=== PATIENT | male | born 1985 | race Caucasian/White ===

== ENCOUNTER 2016-12-15 00:52 | Inpatient (IN) | payer OTHER ==
--- NOTE | 2016-12-15 01:13 | HP ---
COWS - Scale Resting Pulse: 1= [place] 81-100 Sweatin= Chills/Flushing Restless Observation: 3= Extraneous Movement Pupil Size: 2= Moderately Dilated Bone or Joint Aches: 2= Severe Diffuse Aches Runny Nose/ Eye Tearin= Runny Nose/Eyes GI Upset > 30mins: 3= Vomiting/Diarrhea Tremor Observation: 2= Slight Tremor Visible Yawning Observation: 2= >3x During Session Anxiety or Irritability: 2=Irritable/Anxious Goose Flesh Skin: 0=Smooth Skin COWS Score: 20 Admission ROS BHS - HPI Chief Complaint: i need help to stop using heroin,pcp,cocaine Allergies/Adverse Reactions: Allergies Allergy/AdvReac Type Severity Reaction Status Date / Time No Known Allergies Allergy Verified 12/15/16 01:51 History of Present Illness: this 31 years old male with heroi,cocaine and pcp dependence,seeking detox,last treatment [facility] 02/03/16 to 02/07/16 nicotine dependence depression weight loss no significant period of sobriety Exam Limitations: No Limitations - Ebola screening Have you traveled outside of the country in the last 21 days: No - Review of Systems Constitutional: Chills, Diaphoresis, Loss of Appetite, Malaise, Night Sweats, Changes in sleep, Weakness, Unintentional Wgt. Loss EENT: reports: Tearing, Nose Congestion Respiratory: reports: Other (asthma) Cardiac: reports: No Symptoms Reported GI: reports: Diarrhea, Nausea, Vomiting, Abdominal cramping Musculoskeletal: reports: Back Pain, Joint Pain, Muscle Pain, Joint Stiffness Neuro: reports: Headache, Tremors Endocrine: reports: No Symptoms Reported Hematology: reports: No Symptoms Reported Psychiatric: reports: Judgement Intact, Mood/Affect Appropiate, Orientated x3, Depressed Patient History - Patient Medical History Hx Anemia: No Hx Asthma: Yes (on albutrol inhaler) Hx Chronic Obstructive Pulmonary Disease (COPD): No Hx Cancer: No Hx Cardiac Disorders: No Hx Congestive Heart Failure: No Hx Hypertension: No Hx Hypercholesterolemia: No Hx Pacemaker: No HX Cerebrovascular Accident: No Hx Seizures: No Hx Dementia: No Hx Diabetes: No Hx Gastrointestinal Disorders: No Hx Liver Disease: No Hx Genitourinary Disorders: No Hx Sexually Transmitted Disorders: No Hx Renal Disease (ESRD): No Hx Thyroid Disease: No Hx Human Immunodeficiency Virus (HIV): No (negative last 2015 ) Hx Hepatitis C: No (negative) Hx Depression: Yes Hx Suicide Attempt: No Hx Bipolar Disorder: Yes (remeron ) Hx Schizophrenia: No Other Medical History: no suicidal,no homicida,migaine - Patient Surgical History Past Surgical History: Yes Hx Neurologic Surgery: No Hx Cataract Extraction: No Hx Cardiac Surgery: No Hx Lung Surgery: No Hx Breast Surgery: No Hx Breast Biopsy: No Hx Abdominal Surgery: No Hx Appendectomy: No Hx Cholecystectomy: No Hx Genitourinary Surgery: No Hx Section: No Hx Orthopedic Surgery: Yes (right small finger at age of [age] years old) Anesthesia Reaction: No - PPD History Documented Results: Negative w/o proof Date: 06/30/15 Results: 0 mm PPD to be Administered?: Yes - Smoking Cessation Smoking history: Current every day smoker Have you smoked in the past 12 months: Yes Aproximately how many cigarettes per day: 10 Cigars Per Day: 0 Hx Chewing Tobacco Use: No Initiated information on smoking cessation: Yes 'Breaking Loose' booklet given: 12/15/16 - Substance & Tx. History Hx Alcohol Use: No Hx Substance Use: Yes Substance Use Type: Cocaine, Heroin Hx Substance Use Treatment: Yes ([facility] 02/03/16 to 02/07/16) - Substances Abused Heroin Route: Inhalation Frequency: Daily Amount used: 3 bags Age of first use: 29 Date of Last Use: 12/14/16 Cocaine Route: Inhalation Frequency: 1-2 times per week Amount used: 40 to 60$ Age of first use: 29 Date of Last Use: 12/14/16 PCP Route: Smoking Frequency: 3-6 times per week Amount used: 20$ Age of first use: 26 Date of Last Use: 12/14/16 Family Disease History - Family Disease History Family Disease History: Respiratory: Grandparent (GRAND MOTHER ETOH/ASTHMA), Other: Father (alcohol dependence ) Admission Physical Exam S - Vital Signs Vital Signs: Vital Signs Temperature 98 F 12/15/16 01:28 Pulse Rate 83 12/15/16 01:28 Respiratory Rate 20 12/15/16 01:28 Blood Pressure 133/83 12/15/16 01:28 O2 Sat by Pulse Oximetry (%) - Physical General Appearance: Yes: Moderate Distress, Irritable, Sweating, Anxious HEENTM: Yes: Normal ENT Inspection, [place], Pharynx Normal Respiratory: Yes: Lungs Clear, Normal Breath Sounds, No Respiratory Distress Neck: Yes: Within Normal Limits Breast: Yes: Within Normal Limits Cardiology: Yes: Within Normal Limits, Regular Rhythm, Regular Rate, S1, S2 Abdominal: Yes: Within Normal Limits, Normal Bowel Sounds, Non Tender, Soft Genitourinary: Yes: Within Normal Limits Back: Yes: Within Normal Limits, Muscle Spasm Musculoskeletal: Yes: Within Normal Limits, full range of Motion, Back pain, Muscle Pain Extremities: Yes: Within Normal Limits, Normal Range of Motion, Tremors Neurological: Yes: carbon dioxide operator II-XII NML intact, Fully Oriented, Alert, Motor Strength 5/5 Integumentary: Yes: Dry Lymphatic: Yes: Within Normal Limits - Diagnostic (1) Cocaine dependence, uncomplicated Current Visit: Yes Status: Acute (2) Opioid dependence with withdrawal Current Visit: Yes Status: Acute (3) PCP dependence Current Visit: Yes Status: Acute (4) Substance induced mood disorder Current Visit: Yes Status: Acute (5) Asthma Current Visit: Yes Status: Chronic Qualifiers: Asthma severity: mild intermittent Asthma complication type: uncomplicated Qualified Code(s): J45.20 - Mild intermittent asthma, uncomplicated (6) Low back pain Current Visit: Yes Status: Chronic Qualifiers: Chronicity: chronic Back pain laterality: unspecified Sciatica presence: without sciatica Qualified Code(s): M54.5 - Low back pain (7) Nicotine dependence Current Visit: Yes Status: Acute Qualifiers: Nicotine product type: cigarettes Substance use status: uncomplicated Qualified Code(s): F17.210 - Nicotine dependence, cigarettes, uncomplicated (8) Weight loss Current Visit: No Status: Chronic (9) ADHD (attention deficit hyperactivity disorder) Current Visit: Yes Status: Chronic Comment: Historical diagnosis. (10) Bipolar disorder Current Visit: No Status: Suspected Qualifiers: Active/Remission status: in partial remission Most recent bipolar episode type: mixed Qualified Code(s): F31.77 - Bipolar disorder, in partial remission, most recent episode mixed Comment: Historical diagnosis. Cleared for Admission BHS - Detox or Rehab S Level of Care: Medically Managed Detox Regimen/Protocol: Methadone S Breath Alcohol Content Breath Alcohol Content: 0 Vital Signs - Vital Signs Vital Signs Refused: No Temperature: 98 F Temperature Source: Oral Pulse Rate: 83 Respiratory Rate: 20 Blood Pressure: 133/83 BP Location: Left Arm Blood Pressure Position: Supine - Height Height: 5 ft 5 in - Weight Weight: 172 lb Weight Measurement Method: Standing Scale Body Mass Index (BMI): 28.6 Urine Drug Screen - Test Device Lot Number: [id number] Expiration Date: 09/19/18 - Control Is Test Valid: Yes - Results Drug Screen Negative: No Urine Drug Screen Results: TERESA-Cocaine, OPI-Opiates, PCP-Phencyclidine
[2016-12-15 01:29] VITALS: BMI 28.6
[2016-12-15] MEDS ORDERED: guaiFENesin/D-METHORPHAN HB 10 ML UNIT-DOSE CUPS PO PRN (01:33)
[2016-12-15] MEDS ORDERED: NICOTINE POLACRILEX 2 MG GUM BC PRN (01:33)
[2016-12-15] MEDS ORDERED: METHADONE HCL 10 MG TABLET (FOR DETOX USE ONLY) PO ONE ×3 (01:33→23:00)
[2016-12-15] MEDS ORDERED: hydrOXYzine PAMOATE 50 MG CAPSULE (FP) PO PRN (01:33)
[2016-12-15] MEDS ORDERED: MAGNESIUM HYDROX 2400MG/30ML ORAL SUSPENSION 30 ML CUP PO PRN (01:33)
[2016-12-15] MEDS ORDERED: P-EPHED 60MG/TRIPROLIDI 2.5MG TABLET PO PRN (01:33)
[2016-12-15] MEDS ORDERED: MAG HYDROX/AL HYDROX/SIMETH 30 ML UNIT-DOSE CUP PO PRN (01:33)
[2016-12-15] MEDS ORDERED: ACETAMINOPHEN 325 MG TABLET (FP) PO PRN (01:33)
[2016-12-15] MEDS ORDERED: MENTHOL/PHENOL 1 EACH UD MM PRN (01:33)
[2016-12-15] MEDS ORDERED: LOPERAMIDE HCL 2 MG CAPSULE PO PRN (01:33)
[2016-12-15] MEDS ORDERED: MAGNESIUM CITRATE 300 ML BOTTLE PO PRN (01:33)
[2016-12-15] MEDS: diphenhydrAMINE HCL 50 MG CAPSULE PO PRN (02:01)
[2016-12-15] MEDS: diazePAM 5 MG TABLET PO PRN ×3 (02:01→10:27)
[2016-12-15] MEDS: PRENATAL VITAMINS W/ FOLIC ACID TABLET (FP) PO SCH (10:27)
[2016-12-15 10:44] LABS: MCH 29.7 pg (25.7-33.7); MEAN CELL VOLUME 87.5 fl (80-96); MEAN PLT VOLUME 10.4 fl (7.5-11.1); PLATELET COUNT 163 K/MM3 (134-434); RDW 13.1 % (11.9-15.9); WHITE BLOOD COUNT 8.7 K/mm3 (4.0-10.0)
[2016-12-15 10:58] LABS: ALBUMIN 3.9 g/dl (3.4-5.0); ALK PHOS 75 U/L (45-117); ANION GAP 6 (8-16); BILIRUBIN,TOTAL 0.5 mg/dL (0.2-1.0); CO2 31 mmol/L (21-32); CREATININE 1.1 mg/dL (0.7-1.3); GLUCOSE,RANDOM 87 mg/dL (74-106); SGOT/AST 8 U/L (15-37); SGPT/ALT 20 U/L (12-78)
[2016-12-15 11:02] LABS: HIV 1 & 2 AB NEGATIVE; HIV 1 AGp24 NEGATIVE
[2016-12-15] MEDS ORDERED: PNEUMOC 13-VAL CONJ-DIP CRM/PF 0.5 ML DISP.SYRIN IM ONE (12:00)
[2016-12-15] MEDS: NICOTINE 21 MG/24 HOURS TOPICAL PATCH TD SCH (12:49)
[2016-12-15] MEDS ORDERED: PNEUMOCOCCAL 23 VACCINE 0.5 ML VIAL IM ONE (12:58)
[2016-12-15] MEDS: IBUPROFEN 400 MG TABLET (FP) PO PRN (14:25)
--- NOTE | 2016-12-15 15:08 | PN ---
BHS COWS - Scale Resting Pulse: 0= [place] 80 or Below Sweatin=Flushed/Facial Moisture Restless Observation: 1= Difficult to Sit Still Pupil Size: 0= Normal to Room Light Bone or Joint Aches: 2= Severe Diffuse Aches Runny Nose/ Eye Tearin= Runny Nose/Eyes GI Upset > 30mins: 1= Stomach Cramp Tremor Observation of Outstretched Hands: 1= Tremor [place], Not Seen Yawning Observation: 2= >3x During Session Anxiety or Irritability: 2=Irritable/Anxious Goose Flesh Skin: 0=Smooth Skin COWS Score: 13 BHS Progress Note (SOAP) Subjective: Interrupted sleep, Body Aches, H/A, Sweating. Objective: PT. A & O X 2 (DISORIENTED ABOUT DAY / DATE). NO ACUTE DISTRESS. 12/15/16 15:07 Vital Signs Temperature 97.1 F L 12/15/16 09:33 Pulse Rate 63 12/15/16 09:33 Respiratory Rate 18 12/15/16 09:33 Blood Pressure 111/66 12/15/16 09:33 O2 Sat by Pulse Oximetry (%) Laboratory Tests 12/15/16 12/15/16 12/15/16 07:50 07:50 07:50 WBC 8.7 D RBC 5.17 Hgb 15.4 Hct 45.2 MCV 87.5 MCH 29.7 MCHC 34.0 RDW 13.1 Plt Count 163 MPV 10.4 Sodium 144 Potassium 3.7 Chloride 107 Carbon Dioxide 31 Anion Gap 6 L BUN 13 Creatinine 1.1 Creat Clearance w eGFR > 60 Random Glucose 87 Calcium 9.0 Total Bilirubin 0.5 D AST 8 L D ALT 20 Alkaline Phosphatase 75 Total Protein 7.0 Albumin 3.9 RPR Titer Nonreactive HIV 1&2 Antibody Screen HIV P24 Antigen 12/15/16 07:50 WBC RBC Hgb Hct MCV MCH MCHC RDW Plt Count MPV Sodium Potassium Chloride Carbon Dioxide Anion Gap BUN Creatinine Creat Clearance w eGFR Random Glucose Calcium Total Bilirubin AST ALT Alkaline Phosphatase Total Protein Albumin RPR Titer HIV 1&2 Antibody Screen Negative HIV P24 Antigen Negative LABS NOTED. Assessment: 12/15/16 15:07 WITHDRAWAL SYMPTOMS. Plan: CONTINUE DETOX.
--- NOTE | 2016-12-15 15:12 | CONSULT ---
[facility] Psychiatric Consult - Data Date of interview: 12/15/16 Admission source: [facility] Identifying data: One of multiple admissions to [facility] for this 31 y/o male seeking detox treatment on for heroin,cocaine and phencyclidine dependence.Patient is single,a father of two,undomiciled, unemployed and supported on SSI/SSD benefits. Substance Abuse History: Confirmed by patient in this interview. Smoking Cessation. Smoking history: Current every day smoker. Have you smoked in the past 12 months: Yes. Aproximately how many cigarettes per day: 10. Cigars Per Day: 0. Hx Chewing Tobacco Use: No. Initiated information on smoking cessation : Yes. 'Breaking Loose' booklet given: 12/15/16. - Substance & Tx. History. Hx Alcohol Use: No. Hx Substance Use: Yes. Substance Use Type: Cocaine, Heroin. Hx Substance Use Treatment: Yes ([facility] 02/03/16 to 02/07/16). - Substances Abused. Heroin. Route: Inhalation. Frequency: Daily. Amount used: 3 bags. Age of first use: 29. Date of Last Use: 12/14/16. Cocaine. Route: Inhalation. Frequency: 1-2 times per week. Amount used: 40 to 60$. Age of first use: 29. Date of Last Use: 12/14/16. PCP. Route: Smoking. Frequency: 3-6 times per week. Amount used: 20$. Age of first use: 26. Date of Last Use: 12/14/16 Medical History: Bronchial asthma. Psychiatric History: Patient is limited historian.Mr Blackman endorses : ADHD, Schizoprenia,Bipolar Disorder and MDD.History of two psychiatric hospitalizations at [facility].Patient admits to a history of non-adherence to OPD care.He states that he is currently prescribed remeron, seroquel,trazodone (doses not recalled).Reported history of suicide attempt via deliberate self-exposure to oncoming traffic in 2014. Physical/Sexual Abuse/Trauma History: Patient denies. Additional Comment: Urine Drug Screen Results: TERESA-Cocaine, OPI-Opiates, PCP- Phencyclidine.Noted. Mental Status Exam - Mental Status Exam Alert and Oriented to: Time, Place, Person Cognitive Function: Good Patient Appearance: Well Groomed Mood: Hopeful, Euthymic Affect: Appropriate, Normal Range Patient Behavior: Fatigued, Appropriate, Cooperative Speech Pattern: Clear Voice Loudness: Normal Thought Process: Goal Oriented Thought Disorder: Not Present Hallucinations: Denies Suicidal Ideation: Denies Homicidal Ideation: Denies Insight/Judgement: Poor Sleep: Poorly, Difficulty falling asleep Appetite: Good Muscle strength/Tone: Normal Gait/Station: Normal Psychiatric Findings - Problem List ([place] 1, 2,3) (1) Cocaine dependence, uncomplicated Current Visit: Yes Status: Acute (2) Opioid dependence with withdrawal Current Visit: Yes Status: Acute (3) PCP dependence Current Visit: Yes Status: Acute (4) Nicotine dependence Current Visit: Yes Status: Acute Qualifiers: Nicotine product type: cigarettes Substance use status: uncomplicated Qualified Code(s): F17.210 - Nicotine dependence, cigarettes, uncomplicated (5) Substance induced mood disorder Current Visit: Yes Status: Acute (6) ADHD (attention deficit hyperactivity disorder) Current Visit: Yes Status: Chronic Comment: Historical diagnosis. (7) Asthma Current Visit: Yes Status: Chronic Qualifiers: Asthma severity: mild intermittent Asthma complication type: uncomplicated Qualified Code(s): J45.20 - Mild intermittent asthma, uncomplicated (8) Low back pain Current Visit: Yes Status: Chronic Qualifiers: Chronicity: chronic Back pain laterality: unspecified Sciatica presence: without sciatica Qualified Code(s): M54.5 - Low back pain (9) Insomnia Current Visit: Yes Status: Acute - Initial Treatment Plan Initial Treatment Plan: Psychoeducation.Detoxification.Medications :
[2016-12-15] MEDS: QUEtiapine FUMARATE 100 MG TABLET (FP) PO SCH (22:45)
[2016-12-15] MEDS: MIRTAZAPINE 15 MG TABLET (FP) PO SCH (22:45)
[2016-12-15] MEDS: THIAMINE HCL 100 MG TABLET (FP) PO SCH (22:45)
[2016-12-16] MEDS: diazePAM 5 MG TABLET PO PRN ×3 (06:07→18:02)
[2016-12-16] MEDS ORDERED: METHADONE HCL 10 MG TABLET (FOR DETOX USE ONLY) PO ONE (10:00)
[2016-12-16] MEDS: PRENATAL VITAMINS W/ FOLIC ACID TABLET (FP) PO SCH (10:32)
[2016-12-16] MEDS: NICOTINE 21 MG/24 HOURS TOPICAL PATCH TD SCH (10:32)
[2016-12-16] MEDS: predniSONE 20 MG TABLET (UD) PO SCH (11:58)
[2016-12-16] MEDS: ALBUTEROL SO4 0.083% IH SOL 2.5 MG/3 ML VIAL.NEB. NEB PRN ×2 (12:01→21:23)
[2016-12-16] MEDS: IBUPROFEN 400 MG TABLET (FP) PO PRN ×2 (13:45→20:16)
--- NOTE | 2016-12-16 18:06 | PN ---
BHS COWS - Scale Resting Pulse: 0= [place] 80 or Below Sweatin= Chills/Flushing Restless Observation: 3= Extraneous Movement Pupil Size: 1= Pupils >than Normal Bone or Joint Aches: 2= Severe Diffuse Aches Runny Nose/ Eye Tearin= Runny Nose/Eyes GI Upset > 30mins: 3= Vomiting/Diarrhea Tremor Observation of Outstretched Hands: 2= Slight Tremor Visible Yawning Observation: 1= 1-2x During Session Anxiety or Irritability: 2=Irritable/Anxious Goose Flesh Skin: 0=Smooth Skin COWS Score: 17 BHS Progress Note (SOAP) Subjective: Tremor, chills, sweating, diarrhea, interrupted sleep; c/o tonsils feeling swollen since this morning and hard to breathe and that he has asthma Objective: 12/16/16 18:02 Last Vital Signs Temp Pulse Resp BP Pulse Ox 96.7 F L 64 18 114/73 12/16/16 14:18 12/16/16 14:18 12/16/16 14:18 12/16/16 14:18 PE: HEENT: AT/NC, PERRL, EOMI, nares patent, no pharyngeal erythema, tonsils moderately enlarged Neck: supple, FROM, no lymphadenopathy Resp: lungs ctab/l, no adventitious breath sounds CV: rrr, s1s2+ Skin: warm to touch, turgor good Neuro: A/A/Ox3, CN 11-X11 intact, gait steady, patient appears drowsy Laboratory Tests 12/15/16 12/15/16 12/15/16 07:50 07:50 07:50 WBC 8.7 D RBC 5.17 Hgb 15.4 Hct 45.2 MCV 87.5 MCH 29.7 MCHC 34.0 RDW 13.1 Plt Count 163 MPV 10.4 Sodium 144 Potassium 3.7 Chloride 107 Carbon Dioxide 31 Anion Gap 6 L BUN 13 Creatinine 1.1 Creat Clearance w eGFR > 60 Random Glucose 87 Calcium 9.0 Total Bilirubin 0.5 D AST 8 L D ALT 20 Alkaline Phosphatase 75 Total Protein 7.0 Albumin 3.9 RPR Titer Nonreactive HIV 1&2 Antibody Screen HIV P24 Antigen 12/15/16 07:50 WBC RBC Hgb Hct MCV MCH MCHC RDW Plt Count MPV Sodium Potassium Chloride Carbon Dioxide Anion Gap BUN Creatinine Creat Clearance w eGFR Random Glucose Calcium Total Bilirubin AST ALT Alkaline Phosphatase Total Protein Albumin RPR Titer HIV 1&2 Antibody Screen Negative HIV P24 Antigen Negative Labs noted Assessment: 12/16/16 18:06 Withdrawal symptoms Noted with enlarged tonsils and c/o hard to breathe, reports h/o asthma Plan: Continue detox Enlarged tonsils/asthma: prednisone 40mg PO x 1 dose then daily for 5 days, albuterol nebulizer 3ml x 1 dose then q6hr prn, albuterol mdi q4hr prn, continue to monitor
[2016-12-16] MEDS ORDERED: ALBUTEROL SO4 6.7 GM HFA INHALER IH PRN (18:10)
--- NOTE | 2016-12-16 22:25 | EKG ---
Test Reason : Blood Pressure : / mmHG Vent. Rate : 063 BPM Atrial Rate : 063 BPM P-R Int : 160 ms QRS Dur : 098 ms QT Int : 368 ms P-R-T Axes : 045 044 027 degrees QTc Int : 376 ms NORMAL SINUS RHYTHM INCOMPLETE RIGHT BUNDLE BRANCH BLOCK BORDERLINE ECG WHEN COMPARED WITH ECG OF 23-JUN-2009 21:01, NO SIGNIFICANT CHANGE WAS FOUND Confirmed by ALEKSANDER OLSON MD ([id number]) on 12/16/2016 10:24:59 PM Referred By: Confirmed By:ALEKSANDER OLSON MD
[2016-12-16] MEDS: THIAMINE HCL 100 MG TABLET (FP) PO SCH (22:40)
[2016-12-16] MEDS: QUEtiapine FUMARATE 100 MG TABLET (FP) PO SCH (22:40)
[2016-12-16] MEDS: MIRTAZAPINE 15 MG TABLET (FP) PO SCH (22:40)
[2016-12-17] MEDS: diphenhydrAMINE HCL 50 MG CAPSULE PO PRN (00:41)
[2016-12-17] MEDS: ALBUTEROL SO4 0.083% IH SOL 2.5 MG/3 ML VIAL.NEB. NEB PRN (03:19)
[2016-12-17] MEDS: diazePAM 5 MG TABLET PO PRN (05:37)
--- NOTE | 2016-12-17 09:55 | PN ---
BHS Progress Note (SOAP) Subjective: nausa, sweats, interrupted sleep, anxiety, tremors Objective: 12/17/16 09:54 Vital Signs - 8 hr 12/17/16 12/17/16 06:15 09:16 Temperature 97.1 F L 98.1 F Pulse Rate 62 80 Respiratory 18 18 Rate Blood Pressure 131/78 130/82 Laboratory Tests 12/15/16 12/15/16 12/15/16 07:50 07:50 07:50 WBC 8.7 D RBC 5.17 Hgb 15.4 Hct 45.2 MCV 87.5 MCH 29.7 MCHC 34.0 RDW 13.1 Plt Count 163 MPV 10.4 Sodium 144 Potassium 3.7 Chloride 107 Carbon Dioxide 31 Anion Gap 6 L BUN 13 Creatinine 1.1 Creat Clearance w eGFR > 60 Random Glucose 87 Calcium 9.0 Total Bilirubin 0.5 D AST 8 L D ALT 20 Alkaline Phosphatase 75 Total Protein 7.0 Albumin 3.9 RPR Titer Nonreactive HIV 1&2 Antibody Screen HIV P24 Antigen 12/15/16 07:50 WBC RBC Hgb Hct MCV MCH MCHC RDW Plt Count MPV Sodium Potassium Chloride Carbon Dioxide Anion Gap BUN Creatinine Creat Clearance w eGFR Random Glucose Calcium Total Bilirubin AST ALT Alkaline Phosphatase Total Protein Albumin RPR Titer HIV 1&2 Antibody Screen Negative HIV P24 Antigen Negative labs noted, u/a not performed Assessment: 12/17/16 09:55 withdrawal sx, absent u/a from admitting labs Plan: cont detox, u/a today
[2016-12-17] MEDS ORDERED: METHADONE HCL 5 MG TABLET (FOR DETOX USE ONLY) PO ONE (10:00)
[2016-12-17] MEDS: predniSONE 20 MG TABLET (UD) PO SCH (10:41)
[2016-12-17] MEDS: PRENATAL VITAMINS W/ FOLIC ACID TABLET (FP) PO SCH (10:42)
[2016-12-17] MEDS: NICOTINE 21 MG/24 HOURS TOPICAL PATCH TD SCH (10:43)
[2016-12-17 15:39] LABS: URINE APPEARANCE SLCLOUDY; URINE BILIRUBIN NEGATIVE (NEGATIVE); URINE BLOOD NEGATIVE (NEGATIVE); URINE COLOR YELLOW; URINE GLUCOSE (UA) NEGATIVE (NEGATIVE); URINE KETONE NEGATIVE (NEGATIVE); URINE LEUK ESTERASE NEGATIVE (NEGATIVE); URINE NITRITE NEGATIVE (NEGATIVE); URINE PROTEIN NEGATIVE (NEGATIVE); URINE UROBILINOGEN NEGATIVE mg/dL (0.2-1.0)
--- NOTE | 2016-12-17 17:04 | PN ---
[facility] Progress Note Note: CALLED TO SEE PT WHO WAS C/O ACTIVE BLOODY VOMITING AND UNSTEADY GAIT- DIZZINESS. PT HAS A HX HEROIN,COCAINE AND PCP USE. PT IS HERE DETOXING FROM HEROIN SINCE 12/15/16. PT REPORTS PREVIOUS HX OF VOMITING BLOOD SOMETIME LAST YEAR. DENIES STOMACH HX AILMENTS. DENIES DIARRHEA OR ABDOMINAL PAIN NOW. ALERT O X 3. DENIES ABDOMINAL PAIN EXCEPT HEARTBURN IN AM. PT WITH PMHx OF ASTHMA AND DEPRESSION. VS: BP 121/71 T97.4 P89 RR18 CARDIAC: S1 S2, RRR LUNGS:CTA/P ABDOMEN:SOFT BS+ ,SLIGHT DISTENSION, NT CLUMPS OF BLOODY EMESIS NOTED IN TOILET PLAN; TRANSFER TO [facility] ER VIA AMBULANCE FOR EVALUATION AND TREATMENT.
[2016-12-17] MEDS: MIRTAZAPINE 15 MG TABLET (FP) PO SCH (22:50)
[2016-12-17] MEDS: THIAMINE HCL 100 MG TABLET (FP) PO SCH (22:51)
[2016-12-17] MEDS: QUEtiapine FUMARATE 100 MG TABLET (FP) PO SCH (22:51)
[2016-12-18 00:17] VITALS: BP 129/66; PULSE 72; TEMP 98
--- NOTE | 2016-12-18 00:33 | PN ---
[facility] Progress Note Note: WATER SOFTENER INSTALLER CALLED TO THE FLOOR TO SPEAK WITH WITH THE PATIENT, WHO WANTS TO LEAVE AMA. HE HAD JUST RETURNED FROM [facility] ER AFTER BEING EVALUATED FOR VOMITING. HE STATES HE WILL F/U WITH PCP REGARDING ABNORMAL LABS. HE WAS ENCOURAGED TO STAY UNTIL THE MORNING BUT HE STATED HE LIVES WALKING DISTANCE FROM THE HOSPITAL.
[2016-12-18] MEDS ORDERED: METHADONE HCL 5 MG TABLET (FOR DETOX USE ONLY) PO ONE (10:00)
[2016-12-19] MEDS ORDERED: METHADONE HCL 10 MG TABLET (FOR DETOX USE ONLY) PO ONE (10:00)
[2016-12-20] MEDS ORDERED: METHADONE HCL 5 MG TABLET (FOR DETOX USE ONLY) PO ONE (06:00)
== END 2016-12-18 00:40 | disposition left against medical advice (07) | DRG 894 ==
LOC: YASAS 00:52 → Y3N 01:28
PROVIDERS: ADMIT Internal Medicine Addiction Medicine; ATTEND Internal Medicine
PROC: HZ2ZZZZ Detoxification Services for Substance Abuse Treatment (ICD-10-PCS; principal; 2016-12-18)
DX: F11.23 Opioid dependence with withdrawal (principal); F14.20 Cocaine dependence, uncomplicated; F16.20 Hallucinogen dependence, uncomplicated; F17.210 Nicotine dependence, cigarettes, uncomplicated; F31.9 Bipolar disorder, unspecified; F19.24 Other psychoactive substance dependence with psychoactive substance-induced mood disorder; G47.00 Insomnia, unspecified; F90.9 Attention-deficit hyperactivity disorder, unspecified type; J45.20 Mild intermittent asthma, uncomplicated; M54.5 Low back pain; G89.29 Other chronic pain
CPT/HCPCS: 36415; 80053; 81003; 85027; 86593; 87389; 93005; 93010; 94640

== ENCOUNTER 2016-12-17 17:10 | Emergency (ER) | payer OTHER ==
[2016-12-17 17:23] VITALS: PULSE 69; TEMP 97.7; BMI 29.4
[2016-12-17] MEDS ORDERED: ONDANSETRON 4 MG/2 ML VIAL IVPB ONE (17:40)
[2016-12-17] MEDS ORDERED: SODIUM CHLORIDE 1,000 ML IV STA (17:40)
[2016-12-17] MEDS ORDERED: PANTOPRAZOLE SODIUM 40 MG in SODIUM CHLORIDE 100 ML IVPB ONE (17:40)
[2016-12-17] MEDS ORDERED: ONDANSETRON 4 MG/2 ML VIAL ONE (18:06)
[2016-12-17] MEDS ORDERED: PANTOPRAZOLE SODIUM 100 ML IVPB ONE (18:06)
[2016-12-17 19:17] LABS: BASOPHIL 0.6 % (0-2.0); EOSINOPHIL 0.1 % (0-4.5); MCH 30.1 pg (25.7-33.7); MCHC 34.5 g/dl (32.0-35.9); MEAN CELL VOLUME 87.3 fl (80-96); MEAN PLT VOLUME 10.3 fl (7.5-11.1); NEUTROPHILS 81.5 % (42.8-82.8); PLATELET COUNT 144 K/MM3 (134-434); RDW 13.3 % (11.9-15.9)
[2016-12-17 19:28] LABS: INR 0.88 (0.82-1.09); PROTHROMBIN TIME (PATIENT) 9.7 SEC (9.98-11.88)
[2016-12-17 20:13] LABS: ALBUMIN 4.3 g/dl (3.4-5.0); ALK PHOS 92 U/L (45-117); ANION GAP 7 (8-16); BILIRUBIN,TOTAL 0.3 mg/dL (0.2-1.0); CALCIUM 9.7 mg/dL (8.5-10.1); CO2 30 mmol/L (21-32); GLUCOSE,RANDOM 114 mg/dL (74-106); SGOT/AST 180 U/L (15-37); SGPT/ALT 299 U/L (12-78); TOT PROT 7.7 g/dl (6.4-8.2)
--- NOTE | 2016-12-17 20:48 | PDOC ---
History of Present Illness - General History Source: Patient - History of Present Illness Initial Comments: 12/17/16 20:50 31 y/o M with a PMHx of schizophrenia, bipolar disorder, asthma, polysubstance abuse presents to the ED sent from [facility] with epigastric pain and vomiting today. Patients nurse at [facility] reports that she saw dark colored vomit, so they sent him here for further evaluation. Patient has been admitted to [facility] for 2 days fo PCP, heroin, and cocaine use. SHx: half a pack of tobacco daily, no buttermaker sobriety Allergies: none <Lucia Morgan - Last Filed: 12/17/16 20:50> <Sonia Alvarez - Last Filed: 12/18/16 17:53> - General Chief Complaint: Coffee Ground Emesis Stated Complaint: VOMITING BLOOD Time Seen by Provider: 12/17/16 17:16 Past History <Lucia Morgan - Last Filed: 12/17/16 20:50> - Past Medical History Anemia: No Asthma: Yes (on albutrol inhaler) Cancer: No Cardiac Disorders: No CVA: No COPD: No CHF: No Dementia: No Diabetes: No GI Disorders: No Disorders: No HTN: No Hypercholesterolemia: No Kidney Stones: No Liver Disease: No Psychiatric Problems: Yes (depression/anxiety/ bipolar) Suicide Attempt (Hx): No Seizures: No Thyroid Disease: No - Surgical History Abdominal Surgery: No Appendectomy: No Cardiac Surgery: No Cholecystectomy: No Lung Surgery: No Neurologic Surgery: No Orthopedic Surgery: Yes (right small finger at age of [age] years old) - Reproductive History Testicular Surgery: No - Immunization History Immunization Up to Date: Yes - Psycho/Social/Smoking Cessation Hx Anxiety: No Suicidal Ideation: No Smoking Status: Yes Smoking History: Current every day smoker Have you smoked in the past 12 months: Yes Number of Cigarettes Smoked Daily: 10 Cigars Per Day: 0 Information on smoking cessation initiated: No 'Breaking Loose' booklet given: 12/15/16 Hx Alcohol Use: No Drug/Substance Use Hx: No Substance Use Type: Cocaine, Heroin Hx Substance Use Treatment: Yes (sj 02/03/16 to 02/07/16) <Sonia Alvarez - Last Filed: 12/18/16 17:53> - Past Medical History Allergies/Adverse Reactions: Allergies Allergy/AdvReac Type Severity Reaction Status Date / Time No Known Allergies Allergy Verified 12/17/16 17:21 Home Medications: Ambulatory Orders Albuterol Sulfate Inhaler - [Ventolin Hfa Inhaler -] 2 inh PO Q4H PRN 02/03/16 Mirtazapine [Remeron -] 45 mg PO HS 12/15/16 Quetiapine Fumarate [Seroquel] 100 mg PO HS #30 tablet 12/15/16 Abd/GI Specific PMHX - Complaint Specific PMHX Hepatitis: No Pancreatitis: No <AntonioSonia Martha - Last Filed: 12/18/16 17:53> Review of Systems - Review of Systems Comments:: 12/17/16 20:50 CONSTITUTIONAL: Absent: fever, chills, fatigue EYES: Absent: visual changes ENT: Absent: ear pain, sore throat CARDIOVASCULAR: Absent: chest pain, palpitations RESPIRATORY: Absent: cough, SOB GI: (+) epigastric pain, vomiting. Absent: constipation, diarrhea GENITOURINARY: Absent: dysuria, frequency, hematuria MUSCULOSKELETAL: Absent: back pain, arthralgia, myalgia SKIN: Absent: rash NEURO: Absent: headache <Lucia Morgan A - Last Filed: 12/17/16 20:50> *Physical Exam - Vital Signs Last Vital Signs Temp Pulse Resp BP Pulse Ox 97.7 F 69 20 133/71 99 12/17/16 17:21 12/17/16 17:21 12/17/16 17:21 12/17/16 17:21 12/17/16 17:21 - Physical Exam Comments: 12/17/16 20:51 GENERAL: Well-appearing, well-nourished. No apparent distress. HEENT: Normocephalic, atraumatic. PERRL, EOM intact. CARDIOVASCULAR: Normal S1, S2. Regular rate and rhythm. PULMONARY: Clear to auscultation bilaterally. ABDOMEN: Soft, non-distended, non-tender. EXTREMITIES: Normal ROM in all four extremities. No gross deformities. No edema. SKIN: Warm, dry. No rash NEUROLOGICAL: No focal neurological deficits. <Lucia Morgan A - Last Filed: 12/17/16 20:50> - Vital Signs Last Vital Signs Temp Pulse Resp BP Pulse Ox 97.7 F 69 20 133/71 99 12/17/16 17:21 12/17/16 17:21 12/17/16 17:21 12/17/16 17:21 12/17/16 17:21 <Sonia Alvarez - Last Filed: 12/18/16 17:53> ED Treatment Course - LABORATORY CBC & Chemistry Diagram: 12/17/16 18:24 12/17/16 18:24 - ADDITIONAL ORDERS Additional order review: Laboratory Results 12/17/16 12/17/16 12/17/16 18:24 18:24 18:24 INR 0.88 Sodium 140 Potassium 4.4 Chloride 103 Carbon Dioxide 30 Anion Gap 7 L BUN 13 Creatinine 1.0 Creat Clearance w eGFR > 60 Random Glucose 114 H D Calcium 9.7 Total Bilirubin 0.3 D AST 180 H D ALT 299 H D Alkaline Phosphatase 92 D Total Protein 7.7 Albumin 4.3 Blood Type O NEGATIVE Antibody Screen Negative 12/17/16 18:24 RBC 4.87 MCV 87.3 MCHC 34.5 RDW 13.3 MPV 10.3 Neutrophils % 81.5 D Lymphocytes % 15.3 D Monocytes % 2.5 L Eosinophils % 0.1 D Basophils % 0.6 - Medications Given in the ED: ED Medications Discontinued Medications Generic Name Dose Route Start Last Admin Trade Name Saravanan PRN Reason Stop Dose Admin Pantoprazole Sodium 40 mg/ 100 mls @ 200 mls/hr 12/17/16 17:40 12/17/16 18:26 Sodium Chloride IVPB 12/17/16 18:09 200 mls/hr ONCE ONE Administration Sodium Chloride 1,000 mls @ 1,000 mls/hr 12/17/16 17:40 12/17/16 18:26 Normal Saline - IV 12/17/16 18:39 1,000 mls/hr ASDIR STA Administration Ondansetron HCl 4 mg 12/17/16 17:40 12/17/16 18:26 Zofran Injection IVPB 12/17/16 17:41 4 mg ONCE ONE Administration <Lucia Morgan - Last Filed: 12/17/16 20:50> - LABORATORY CBC & Chemistry Diagram: 12/17/16 18:24 12/17/16 18:24 - ADDITIONAL ORDERS Additional order review: Laboratory Results 12/17/16 12/17/1612/17/17 18:24 18:24 18:24 INR 0.88 Sodium 140 Potassium 4.4 Chloride 103 Carbon Dioxide 30 Anion Gap 7 L BUN 13 Creatinine 1.0 Creat Clearance w eGFR > 60 Random Glucose 114 H D Calcium 9.7 Total Bilirubin 0.3 D AST 180 H D ALT 299 H D Alkaline Phosphatase 92 D Total Protein 7.7 Albumin 4.3 Blood Type O NEGATIVE Antibody Screen Negative 12/17/16 18:24 RBC 4.87 MCV 87.3 MCHC 34.5 RDW 13.3 MPV 10.3 Neutrophils % 81.5 D Lymphocytes % 15.3 D Monocytes % 2.5 L Eosinophils % 0.1 D Basophils % 0.6 - RADIOLOGY Radiology Studies Ordered: Category Date Time Status CHEST X-RAY PORTABLE* [RAD] Stat Radiology 12/17/16 17:40 Taken - Medications Given in the ED: ED Medications Discontinued Medications Generic Name Dose Route Start Last Admin Trade Name Freq PRN Reason Stop Dose Admin Pantoprazole Sodium 40 mg/ 100 mls @ 200 mls/hr 12/17/16 17:40 12/17/16 18:26 Sodium Chloride IVPB 12/17/16 18:09 200 mls/hr ONCE ONE Administration Sodium Chloride 1,000 mls @ 1,000 mls/hr 12/17/16 17:40 12/17/16 18:26 Normal Saline - IV 12/17/16 18:39 1,000 mls/hr ASDIR STA Administration Ondansetron HCl 4 mg 12/17/16 17:40 12/17/16 18:26 Zofran Injection IVPB 12/17/16 17:41 4 mg ONCE ONE Administration <Sonia Alvarez - Last Filed: 12/18/16 17:53> Medical Decision Making - Medical Decision Making 12/17/16 21:13 31-year-old male brought from [facility] after an episode of vomiting 4. He said prior to vomiting. He has some epigastric discomfort. He said when he vomited and he spit up something, it looked bloody. ekg NSR Past medical history significant for, #cocaine abuse. He also smokes tobacco. Past surgical history right pinky finger was fractured and had surgery when he was younger Physical exam abdomen is soft, no guarding, no rebound During his stay in the emergency department of 4 hours. He did not have any further vomiting. He did receive IV fluids. Zofran, and Protonix IV. This patient pulled out his heplock and stated he wanted to eat and then leave I called [facility] detox and spoke to the nurse practitioner Betzaida -I reviewed the results of the lab work with the nurse practitioner. The plan is to discharge patient back to [facility] and of course, if he does have recurrent symptoms. He will be sent in for admission <Sonia Alvarez - Last Filed: 12/18/16 17:53> *DC/Admit/Observation/Transfer - Attestations Scribe Attestion: 12/17/16 20:51 Documentation prepared by Lucia Morgan, acting as medical transcriptionist for Sonia Alvarez MD. <Lucia Morgan - Last Filed: 12/17/16 20:50> <Sonia Alvarez - Last Filed: 12/18/16 17:53> Diagnosis at time of Disposition: PCP dependence Vomiting Qualifiers: Vomiting type: unspecified Vomiting Intractability: non-intractable Nausea presence: without nausea Qualified Code(s): R11.11 - Vomiting without nausea - Discharge Dispostion Disposition: I.P. ALCOHOL/SUBS ABUSE REHAB Condition at time of disposition: Stable - Referrals Referrals: Damian Medina MD [Primary Care Provider] - - Patient Instructions Printed Discharge Instructions: DI for Vomiting -- Adult Additional Instructions: Patient has elevated liver function tests. Spoke with Nurse Practitioner Betzaida prior to discharging patient back to [facility]
[2016-12-17 21:11] VITALS: BP 128/79
--- NOTE | 2016-12-18 19:03 | EKG ---
Test Reason : Blood Pressure : / mmHG Vent. Rate : 065 BPM Atrial Rate : 065 BPM P-R Int : 156 ms QRS Dur : 092 ms QT Int : 380 ms P-R-T Axes : 036 034 014 degrees QTc Int : 395 ms NORMAL SINUS RHYTHM NORMAL ECG WHEN COMPARED WITH ECG OF 15-DEC-2016 01:02, INCOMPLETE RIGHT BUNDLE BRANCH BLOCK IS NO LONGER PRESENT REPEAT EKG IF CLINICALLY INDICATED Confirmed by KLARISSA VELOZ MD ([id number]) on 12/18/2016 7:03:21 PM Referred By: Confirmed By:KLARISSA VELOZ MD
== END 2016-12-17 23:49 | disposition other institution (70) ==
LOC: JER 17:10
PROC: 3E033GC Introduction of Other Therapeutic Substance into Peripheral Vein, Percutaneous Approach (ICD-10-PCS; principal; 2016-12-17)
DX: F16.10 Hallucinogen abuse, uncomplicated (principal); F11.10 Opioid abuse, uncomplicated; F14.10 Cocaine abuse, uncomplicated; F17.210 Nicotine dependence, cigarettes, uncomplicated; F20.9 Schizophrenia, unspecified; F31.9 Bipolar disorder, unspecified; F41.8 Other specified anxiety disorders; J45.909 Unspecified asthma, uncomplicated
CPT/HCPCS: 36415; 71010-TC; 80053; 85025; 85044; 85610; 86850; 86900; 86901; 93005; 93010; 96365; 96375; 99282-25

== ENCOUNTER 2016-12-25 12:07 | Inpatient (IN) | payer OTHER ==
[2016-12-25 12:13] VITALS: BMI 28.3
--- NOTE | 2016-12-25 15:36 | HP ---
Admission [facility] Chief Complaint: REHAB TX FOR HEROIN,COCAINE AND PCP DEPENDENCE Allergies/Adverse Reactions: Allergies Allergy/AdvReac Type Severity Reaction Status Date / Time No Known Allergies Allergy Verified 12/25/16 13:04 History of Present Illness: 31 Y/O H/M WITH A HX OF HEROIN, COCAINE AND PCP DEPENDENCE SEEKING REHAB TX. PT WAS IN HERE IN DETOX 12/15 TO 12/18/16 ANX SIGNED OUT AMA. PT IS ALERT O X 3. DENIES ANY WITHDRAWAL SX. Exam Limitations: No Limitations - Ebola screening Have you traveled outside of the country in the last 21 days: No Have you had contact with anyone from an Ebola affected area: No Have you been sick,other than usual withdrawal symptoms: No Do you have a fever: No - Review of Systems Constitutional: Chills, Loss of Appetite, Night Sweats, Changes in sleep, Unintentional Wgt. Loss EENT: reports: Blurred Vision, Tearing, Nose Congestion Respiratory: reports: Shortness of Breath (HX ASTHMA), Wheezing Cardiac: reports: No Symptoms Reported GI: reports: Diarrhea, Nausea, Vomiting, Abdominal cramping : reports: No Symptoms Reported Musculoskeletal: reports: Back Pain, Joint Pain, Muscle Pain Integumentary: reports: No Symptoms Reported Neuro: reports: Headache (MIGRAIN HEADACHES), Unsteady Gait Endocrine: reports: No Symptoms Reported Hematology: reports: No Symptoms Reported Psychiatric: reports: Orientated x3, Anxious, Depressed Other Systems: Reviewed and Negative Patient History - Patient Medical History Hx Anemia: No Hx Asthma: Yes (on albutrol inhaler) Hx Chronic Obstructive Pulmonary Disease (COPD): No Hx Cancer: No Hx Cardiac Disorders: No Hx Congestive Heart Failure: No Hx Hypertension: No Hx Hypercholesterolemia: No Hx Pacemaker: No HX Cerebrovascular Accident: No Hx Seizures: No Hx Dementia: No Hx Diabetes: No Hx Gastrointestinal Disorders: No Hx Liver Disease: No Hx Genitourinary Disorders: No Hx Sexually Transmitted Disorders: No (DENIES) Hx Renal Disease (ESRD): No Hx Thyroid Disease: No Hx Human Immunodeficiency Virus (HIV): No (negative last 2015 ) Hx Hepatitis C: No (negative) Hx Depression: Yes Hx Suicide Attempt: No (DENIES) Hx Bipolar Disorder: Yes (remeron ) Hx Schizophrenia: No - Patient Surgical History Past Surgical History: Yes Hx Neurologic Surgery: No Hx Cataract Extraction: No Hx Cardiac Surgery: No Hx Lung Surgery: No Hx Breast Surgery: No Hx Breast Biopsy: No Hx Abdominal Surgery: No Hx Appendectomy: No Hx Cholecystectomy: No Hx Genitourinary Surgery: No Hx Orthopedic Surgery: Yes (right small finger at age of [age] years old) Anesthesia Reaction: No - PPD History Previous Implant?: Yes Documented Results: Negative w/proof Date: 12/17/16 Results: 0 mm PPD to be Administered?: No - Reproductive History Patient is a Female of Child Bearing Age (11 -55 yrs old): No (MALE) Patient : (N/A) - Smoking Cessation Smoking history: Current every day smoker Have you smoked in the past 12 months: Yes Aproximately how many cigarettes per day: 10 Cigars Per Day: 0 Hx Chewing Tobacco Use: No Initiated information on smoking cessation: Yes 'Breaking Loose' booklet given: 12/25/16 - Substance & Tx. History Hx Alcohol Use: No (DENIES) Hx Substance Use: Yes (HEROIN/COCAINE/PCP) Substance Use Type: Cocaine, Heroin - Substances Abused Heroin Route: Inhalation Frequency: Daily Amount used: 2-3 BAGS Age of first use: 26 Date of Last Use: 12/24/16 Cocaine Route: Inhalation Frequency: 1-2 times per week Amount used: 2 BAGS Age of first use: 24 Date of Last Use: 12/23/16 PCP Route: Smoking Frequency: Daily Amount used: 2 BAGS Age of first use: 17 Date of Last Use: 12/24/16 Family Disease History - Family Disease History Family Disease History: Respiratory: Grandparent (GRAND MOTHER ETOH/ASTHMA), Other: Father (alcohol dependence ) Admission Physical Exam [facility] - Vital Signs Vital Signs: Vital Signs - 24 hr 12/25/16 12:07 Temperature 96.2 F L Pulse Rate 78 Respiratory 18 Rate Blood Pressure 128/75 - Physical General Appearance: Yes: No Apparent Distress, Appropriately Dressed, Anxious HEENTM: Yes: EOMI, Normocephalic, SUNITA, Pharynx Normal Respiratory: Yes: Chest Non-Tender, Lungs Clear, Normal Breath Sounds, No Respiratory Distress Neck: Yes: Supple, Trachea in good position Breast: Yes: Breast Exam Deferred Cardiology: Yes: Regular Rhythm, Regular Rate, S1, S2 Abdominal: Yes: Normal Bowel Sounds, Non Tender, Soft Genitourinary: Yes: Other Back: Yes: Within Normal Limits Musculoskeletal: Yes: full range of Motion, Gait Steady Extremities: Yes: Normal Range of Motion, Non-Tender Neurological: Yes: medical chemist II-XII NML intact, Fully Oriented, Alert, Motor Strength 5/5 Integumentary: Yes: Dry, Warm Lymphatic: Yes: Within Normal Limits - Diagnostic (1) Cocaine dependence, uncomplicated Current Visit: Yes Status: Chronic (2) Nicotine dependence Current Visit: Yes Status: Acute (3) Opioid dependence with withdrawal Current Visit: Yes Status: Chronic (4) Phencyclidine dependence Current Visit: Yes Status: Chronic (5) Asthma Current Visit: Yes Status: Chronic Qualifiers: Asthma severity: mild intermittent Asthma complication type: uncomplicated Qualified Code(s): J45.20 - Mild intermittent asthma, uncomplicated (6) Low back pain Current Visit: Yes Status: Chronic Qualifiers: Chronicity: chronic Back pain laterality: unspecified Sciatica presence: without sciatica Qualified Code(s): M54.5 - Low back pain Cleared for Admission [facility] - Detox or Rehab Claeared for Rehab Admission: Yes [facility] Breath Alcohol Content Breath Alcohol Content: 0 Urine Drug Screen - Results Drug Screen Negative: No Urine Drug Screen Results: TERESA-Cocaine, OPI-Opiates, BZO-Benzodiazepines, MTD- Methadone, OXY-Oxycodone
[2016-12-25] MEDS ORDERED: MENTHOL/PHENOL 1 EACH UD MM PRN (15:41)
[2016-12-25] MEDS ORDERED: hydrOXYzine PAMOATE 50 MG CAPSULE (FP) PO PRN (15:41)
[2016-12-25] MEDS ORDERED: guaiFENesin/D-METHORPHAN HB 10 ML UNIT-DOSE CUPS PO PRN (15:41)
[2016-12-25] MEDS ORDERED: ACETAMINOPHEN 325 MG TABLET (FP) PO PRN (15:41)
[2016-12-25] MEDS ORDERED: diphenhydrAMINE HCL 50 MG CAPSULE PO PRN (15:41)
[2016-12-25] MEDS ORDERED: LOPERAMIDE HCL 2 MG CAPSULE PO PRN (15:41)
[2016-12-25] MEDS ORDERED: IBUPROFEN 400 MG TABLET (FP) PO PRN (15:41)
[2016-12-25] MEDS ORDERED: MAG HYDROX/AL HYDROX/SIMETH 30 ML UNIT-DOSE CUP PO PRN (15:41)
[2016-12-25] MEDS ORDERED: MAGNESIUM CITRATE 300 ML BOTTLE PO PRN (15:41)
[2016-12-25] MEDS ORDERED: P-EPHED 60MG/TRIPROLIDI 2.5MG TABLET PO PRN (15:41)
[2016-12-25] MEDS ORDERED: MAGNESIUM HYDROX 2400MG/30ML ORAL SUSPENSION 30 ML CUP PO PRN (15:41)
[2016-12-25] MEDS ORDERED: NICOTINE POLACRILEX 2 MG GUM BC PRN (15:41)
[2016-12-25] MEDS: NICOTINE 14 MG/24 HOURS TOPICAL PATCH TD SCH (16:09)
[2016-12-25] MEDS: THIAMINE HCL 100 MG TABLET (FP) PO SCH (22:07)
[2016-12-26 06:48] VITALS: TEMP 97.5
--- NOTE | 2016-12-26 07:02 | HP ---
Psychiatrist Admission - Data Date of interview: 12/26/16 Admission source: Self-referred Identifying data: This is the first [facility] admission for this 31 years old single male, father of 2 children, unemployed on SSI/SSD, homeless Medical History: Significant for Bronchial Asthma and history of surgery for fracture of right small finger at age 28. Smokes 10 cigarettes daily Psychiatric History: Patient is not a poor historian. Reports that he was diagnosed with ADHD, Bipolar Disorder and Schizophrenia. Reports 2 previous psychiatric hospitalizations for auditory hallucinationa and suicidal ideations , both at [facility] in [place]. Reports he attended [facility] in the past. Currently reports taking Seroquel 100 mg po HS abd Remeron 45 mg po HS prescribedby his primary care physician. Denies previous suicidal attempt though self exposure to oncoming traffic was eported on a previous admission to detox in this facility. At present, reports feeling depressed , anxious and sleeping poorly. Denies experiencing psychotic, manic or depressive symptoms as well as S/H ideations Physical/Sexual Abuse/Trauma History: Denies history of physical, sexual abuse or DV relationship Additional Comment: Reports multiple previous misdemeanor arrests. No probation Vital Signs: Vital Signs - 24 hr 12/25/16 12/26/16 12/26/16 12:07 00:30 06:47 Temperature 96.2 F L 97.5 F L Pulse Rate 78 68 Respiratory 18 18 18 Rate Blood Pressure 128/75 106/77 Allergies/Adverse Reactions: Allergies Allergy/AdvReac Type Severity Reaction Status Date / Time No Known Allergies Allergy Verified 12/25/16 13:04 Date of last physical exam: 12/25/16 Concur with the findings of this exam: Yes - Substance Abuse/Tx History Hx Substance Use: Yes (Started PCP at 17, consumes 2 bags daily. Last used on 12/24/16) Substance Use Type: Cocaine (Started using cocaine at age 24, consumes 2 bags 1- 2 times weekly. Last used on 12/23/16), Heroin (Started using heroin at age 26, consumes 2-3 bags daily. Last used on 12/24/16) Hx Substance Use Treatment: Yes (6 previous inpt detox @ [facility] including 2 AMA's) - Admission Criteria Previous failed treatment: Yes Poor recovery environment: Yes Comorbidities: Yes Lacks judgement: Yes Mental Status Exam - Mental Status Exam Alert and Oriented to: Time, Place, Person Cognitive Function: Fair Patient Appearance: Well Groomed Mood: Depressed, Anxious Affect: Appropriate Patient Behavior: Cooperative Speech Pattern: Clear Voice Loudness: Normal Thought Process: Intact, Goal Oriented Thought Disorder: Not Present Hallucinations: Denies Suicidal Ideation: Denies Homicidal Ideation: Denies Insight/Judgement: Fair Sleep: Poorly Appetite: Poor Muscle strength/Tone: Normal Gait/Station: Normal Psychiatric Findings - Problem List (Jay 1, 2,3) (1) Opioid dependence Current Visit: Yes Status: Acute (2) Cocaine dependence Current Visit: Yes Status: Acute (3) Phencyclidine dependence Current Visit: Yes Status: Chronic - Initial Treatment Plan Initial Treatment Plan: 1) Continue Seroquel 100 mg po HS and Remeron 45 mg po HS. 2) Monitor progress
[2016-12-26] MEDS: PRENATAL VITAMINS W/ FOLIC ACID TABLET (FP) PO SCH (10:56)
[2016-12-26] MEDS: NICOTINE 14 MG/24 HOURS TOPICAL PATCH TD SCH (10:56)
[2016-12-26] MEDS ORDERED: ALBUTEROL SO4 6.7 GM HFA INHALER IH PRN (12:40)
[2016-12-26] MEDS: CYCLOBENZAPRINE HCL 10 MG TABLET (FP) PO SCH ×3 (13:51→23:52)
[2016-12-26] MEDS: NAPROXEN 500 MG TABLET (FP) PO SCH ×3 (13:51→23:52)
[2016-12-26] MEDS: GABAPENTIN 100 MG CAPSULE (FP) PO SCH ×3 (13:51→23:51)
[2016-12-26] MEDS: cloNIDine HCL 0.1 MG TABLET PO SCH ×3 (13:51→23:52)
[2016-12-26] MEDS: QUEtiapine FUMARATE 100 MG TABLET (FP) PO SCH ×2 (21:48→23:52)
[2016-12-26] MEDS: THIAMINE HCL 100 MG TABLET (FP) PO SCH ×2 (21:48→23:51)
[2016-12-26] MEDS: MIRTAZAPINE 15 MG TABLET (FP) PO SCH ×2 (21:48→23:52)
[2016-12-27] MEDS: CYCLOBENZAPRINE HCL 10 MG TABLET (FP) PO SCH (06:25)
[2016-12-27] MEDS: GABAPENTIN 100 MG CAPSULE (FP) PO SCH (06:25)
[2016-12-27 06:36] VITALS: BP 102/66; PULSE 58
[2016-12-27] MEDS: NICOTINE 14 MG/24 HOURS TOPICAL PATCH TD SCH (10:13)
[2016-12-27] MEDS: NAPROXEN 500 MG TABLET (FP) PO SCH (10:13)
[2016-12-27] MEDS: cloNIDine HCL 0.1 MG TABLET PO SCH (10:13)
[2016-12-27] MEDS: PRENATAL VITAMINS W/ FOLIC ACID TABLET (FP) PO SCH (12:13)
--- NOTE | 2016-12-27 13:08 | PN ---
Psychiatric Progress Note Vital Signs: Vital Signs Period Temp Pulse Resp BP Sys/Terry Pulse Ox Last 24 Hr 97.5 F 58-74 18-20 102-114/66-68 Date of Session: 12/27/16 Chief Complaint:: AMA Discharge Note HPI: Patient addressing Opoid, Cocaine and cPhencyclidine Dependence comorbid with Nicotine Dependence, ADHD and Schizoaffective Disorder ROS: Asthma Current Medications: Active Medications Generic Name Dose Route Start Last Admin Trade Name Freq PRN Reason Stop Dose Admin Acetaminophen 650 mg 12/25/16 15:41 Tylenol - PO Q4H PRN PAIN Al Hydroxide/Mg Hydroxide 30 ml 12/25/16 15:41 Mylanta Oral Suspension - PO Q6H PRN DYSPEPSIA Albuterol Sulfate 2 puff 12/26/16 12:40 Ventolin Hfa Inhaler - IH Q4H PRN ASTHMA Clonidine 0.1 mg 12/26/16 13:00 12/27/16 10:13 Catapres - PO 0.1 mg BID ANA M Administration Cyclobenzaprine HCl 10 mg 12/26/16 14:00 12/27/16 06:25 Flexeril - PO Not Given TID ANA M Diphenhydramine HCl 50 mg 12/25/16 15:41 12/25/16 22:07 Benadryl - PO 50 mg HSMR1 PRN Administration INSOMNIA Eucalyptus/Menthol/Phenol/Sorbitol 1 each 12/25/16 15:41 Cepastat Lozenge - MM Q4H PRN SORE THROAT Gabapentin 100 mg 12/26/16 14:00 12/27/16 06:25 Neurontin - PO Not Given TID ANA M Guaifenesin 10 ml 12/25/16 15:41 Robitussin Dm - PO Q6H PRN COUGH Hydroxyzine Pamoate 50 mg 12/25/16 15:41 Vistaril - PO Q4H PRN AGITATION Loperamide HCl 4 mg 12/25/16 15:41 Imodium - PO Q6H PRN DIARRHEA Magnesium Citrate 300 ml 12/25/16 15:41 Citroma - PO Q48H PRN CONSTIPATION Magnesium Hydroxide 30 ml 12/25/16 15:41 Milk Of Magnesia - PO DAILY PRN CONSTIPATION Mirtazapine 45 mg 12/26/16 22:00 12/26/16 23:52 Remeron - PO 45 mg HS ANA M Administration Naproxen 500 mg 12/26/16 13:00 12/27/16 10:13 Naprosyn - PO 500 mg BID ANA M Administration Nicotine 14 mg 12/25/16 15:45 12/27/16 10:13 Nicoderm Patch - TD Not Given DAILY ANA M Nicotine Polacrilex 2 mg 12/25/16 15:41 Nicorette Gum - BC Q2H PRN NICOTINE REPLACEMENT RX Multivit/Folic Acid/Iron 1 tab 12/26/16 10:00 12/27/16 12:13 Vitamins (Sjr) - PO 1 tab DAILY ANA M Administration Pseudoephedrine/Triprolidine 1 combo 12/25/16 15:41 Actifed - PO TID PRN NASAL CONGESTION Quetiapine Fumarate 100 mg 12/26/16 22:00 12/26/16 23:52 Seroquel - PO 100 mg HS ANA M Administration Thiamine HCl 100 mg 12/25/16 22:00 12/26/16 23:51 Vitamin B1 - PO 100 mg HS ANA M Administration Current Side Effect: No Lab tests ordered: Yes Lab tests reviewed: Yes Provider note:: Patient has not completed this program. He wants to leave against medical advice citing that his needs are being addressed. Claims that he has withdrawal symptoms and he is not getting treatment for it. He is determined to leave despite encouragement to stay and complete this program. He is on Seroquel 100 mg po HS and Remeron 45 mg po HS. He declines to have scripts for these medications electronically transmitted to his pharmacy since he has enough supply of medications at home. He is stable for discharge AMA Total face to face time:: 25 Mental Status Exam - Mental Status Exam Alert and Oriented to: Time, Place, Person Cognitive Function: Fair Patient Appearance: Well Groomed Mood: Hopeful, Euthymic Affect: Appropriate Patient Behavior: Cooperative Speech Pattern: Clear Voice Loudness: Normal Thought Process: Intact, Goal Oriented Thought Disorder: Not Present Hallucinations: Denies Suicidal Ideation: Denies Homicidal Ideation: Denies Insight/Judgement: Fair Sleep: Fair Appetite: Good Muscle strength/Tone: Normal Gait/Station: Normal Psychiatric Treatment Plan - Problem List (1) Opioid dependence Current Visit: Yes (2) Cocaine dependence Current Visit: Yes (3) Phencyclidine dependence Current Visit: Yes Initial treatment plan: Patient is discharged AMA
== END 2016-12-27 13:00 | disposition left against medical advice (07) | DRG 894 ==
LOC: YASAS 12:07 → Y3W 15:43
PROVIDERS: ADMIT Psychiatry & Neurology Psychiatry; ATTEND Psychiatry & Neurology Psychiatry
PROC: HZ42ZZZ Group Counseling for Substance Abuse Treatment, Cognitive-Behavioral (ICD-10-PCS; principal; 2016-12-25)
DX: F11.20 Opioid dependence, uncomplicated (principal); F14.20 Cocaine dependence, uncomplicated; F16.20 Hallucinogen dependence, uncomplicated; F17.213 Nicotine dependence, cigarettes, with withdrawal; F90.9 Attention-deficit hyperactivity disorder, unspecified type; F25.9 Schizoaffective disorder, unspecified; J45.20 Mild intermittent asthma, uncomplicated; M54.5 Low back pain; G89.29 Other chronic pain

== ENCOUNTER 2021-03-21 15:19 | Emergency (ER) | payer OTHER ==
[2021-03-21 15:28] VITALS: BMI 25.0
[2021-03-21 16:06] LABS: BASO % 1.7 % (0-2.0); EOS % 3.8 % (0-4.5); HEMATOCRIT 41.9 % (35.4-49); HEMOGLOBIN 14.5 GM/dL (11.7-16.9); LYMPH % 46.1 % (8-40); MCH 28.7 pg (25.7-33.7); MCHC 34.5 g/dl (32.0-35.9); MEAN CELL VOLUME 83.2 fl (80-96); MEAN PLT VOLUME 9.4 fl (7.5-11.1); MONO % 5.6 % (3.8-10.2); NEUT % 42.8 % (42.8-82.8); PLATELET COUNT 222 10^3/uL (134-434); RBC 5.04 M/mm3 (4.00-5.60); RDW 15.6 % (11.9-15.9); WHITE BLOOD COUNT 7.4 K/mm3 (4.0-10.0)
[2021-03-21 16:25] LABS: INR 0.89 (0.83-1.09); PROTHROMBIN TIME (PATIENT) 10.4 SEC (9.7-13.0)
[2021-03-21 16:28] LABS: ACTIVATED PTT 25.5 SECONDS (25.2-36.5)
[2021-03-21 16:47] LABS: CALCIUM 9.4 mg/dL (8.5-10.1)
[2021-03-21 16:51] LABS: CREATININE 1.2 mg/dL (0.55-1.3)
[2021-03-21 16:53] LABS: BILIRUBIN,TOTAL 0.3 mg/dL (0.2-1); TOT PROT 7.9 g/dl (6.4-8.2)
[2021-03-21] MEDS ORDERED: CEFAZOLIN 2 GM in DEXTROSE 5%-WATER - 50 ML IVPB ONE (17:46)
[2021-03-21] MEDS ORDERED: ceFAZolin SODIUM 1 GM VIAL ONE (17:47)
[2021-03-21 18:53] VITALS: BP 116/96; PULSE 91
== END 2021-03-21 18:57 | disposition short-term general hospital (02) ==
LOC: JER 15:19
DX: S31.119A Laceration without foreign body of abdominal wall, unspecified quadrant without penetration into peritoneal cavity, initial encounter (principal); S61.411A Laceration without foreign body of right hand, initial encounter; S61.412A Laceration without foreign body of left hand, initial encounter; X99.1XXA Assault by knife, initial encounter
CPT/HCPCS: 36415; 71045-TC-FY; 71260-TC; 73130-TC-LT-FY; 73130-TC-RT-FY; 74177-TC; 80053; 85025; 85610; 85730; 86850; 86900; 86901; 93005; 93010; 99285-25; C9803; Q9967; U0003; U0005